=== PATIENT | male | born 1965 | race Caucasian/White ===

== ENCOUNTER 2019-11-22 00:24 | Outpatient (CLI) | payer OTHER, SELFPAY ==
[2019-11-22 18:12] LABS: SARS-CoV-2 RNA PCR Negative
== END 2019-11-22 00:25 | disposition home or self-care (01) ==
LOC: ANHCOVIDDT 00:24
PROVIDERS: PCP Family Medicine; Visit Provider Plastic Surgery
DX: Z20.828 Contact with and (suspected) exposure to other viral communicable diseases (principal); Z01.812 Encounter for preprocedural laboratory examination
CPT/HCPCS: 87635; C9803; U0003

== ENCOUNTER 2019-11-24 02:00 | Day surgery (SDC) | payer OTHER, SELFPAY ==
[2019-08-11 11:22] VITALS: BMI 26.5
[2019-11-14 12:39] VITALS: BMI 27.2
--- NOTE | 2019-11-24 07:40 | HP_ITS ---
DATE OF SERVICE: 11/23/2019 PREOPERATIVE DIAGNOSIS: Chalazion, left upper eyelid. HISTORY: The patient is a 54-year-old male who has a history of chalazion removed from his left upper eyelid in February of 2017. This lesion was somewhat lateral on the upper lid. He comes now in July of 2019 with an apparent chalazion in the midportion of the upper lid. He is asking for removal of this, we estimated at 0.9 cm. He understands the procedure and risk to the eyelid function with this procedure. There are a few options. He has failed conservative treatment with hot soaks. We are planning removal of that under local anesthetic. He has alprazolam 0.5 mg to take prior to his arrival at the hospital. MEDICATIONS: The patient takes no medicine on a regular basis. ALLERGIES: HE HAS NO KNOWN ALLERGIES TO MEDICATION. PAST SURGICAL HISTORY: Prior surgeries include removal of tonsils and adenoids as a teenager. FAMILY HISTORY: Noncontributory. SOCIAL HISTORY: He is a smoker of cigarettes. He lives in [place]. He works for the [employer]. PHYSICAL EXAMINATION: GENERAL: He is a pleasant, adult male in no acute distress. HEENT: Reveals a firm mobile mass in the left upper eyelid that is not directly attached to the skin. It is not particularly inflamed today. The rest of the HEENT exam is unremarkable. CHEST: Clear to auscultation. HEART: Regular rate and rhythm by palpation. ABDOMEN: Soft, nontender. EXTREMITIES: Normal. ASSESSMENT: Chalazion in the left upper eyelid. PLAN: Excision under local anesthetic. D I MT: Starla
--- NOTE | 2019-11-24 07:52 | WPDHPUPDATE1 ---
History and Physical Update Update Date/Time: 11/24/19 07:52 History and Physical has been reviewed, including an updated exam of the patient. There are NO changes in the patient's condition. Risks, benefits, and alternatives have been discussed and questions answered. Patient agrees to proceed with procedure.
[2019-11-24 08:34] VITALS: BP 135/87; PULSE 86; RESP 19; O2SAT 99
[2019-11-24 08:44] VITALS: BP 161/92; PULSE 92; RESP 20; O2SAT 97
[2019-11-24] MEDS: LIDO 1%/EPINEPHRINE 1:100,000 20 ML VIAL INFILTRATE (08:45)
[2019-11-24] MEDS: TETRACAINE HCL 0.5% OPHTH SOLN 4 ML BTL 2 DROP LEFT EYE (08:47)
[2019-11-24 08:55] VITALS: BP 143/97; PULSE 95; RESP 20; O2SAT 95
[2019-11-24] MEDS: BACITRACIN OP OINT 3.5 GM TUBE 1 APPLIC LEFT EYE (08:57)
[2019-11-24 09:04] VITALS: BP 131/86; PULSE 94; RESP 18; O2SAT 95
[2019-11-24] MEDS: BALANCED SALT SOLN OPHTH IRRIG 30 ML BTL EACH EYE (09:10)
[2019-11-24 09:12] VITALS: BP 139/91; PULSE 88; RESP 16; O2SAT 98
--- NOTE | 2019-11-24 09:15 | PM.OP ---
Procedure Note - Brief Procedure Note - Brief Date of procedure: 11/24/19 Pre-op diagnosis: chalazion left upper eyelid Post-op diagnosis: same Procedure performed: Incisioinal drainage of chalazion of the left upper eyelid. Anesthesia: local Surgeon: Jose Beaver MD Estimated blood loss (mL): 0 Pathology: none sent Complications: No immediate complications Condition: stable Disposition: same day
--- NOTE | 2019-11-24 09:23 | PM.PROC ---
Procedure Note - Detailed Date of procedure: 11/24/19 Pre-op diagnosis: chalazion left upper eyelid Post-op diagnosis: same (Chalazion of left upper eyelid) Procedure performed: Incisional drainage of chalazion of left upper eyelid. Description of procedure: The site on the left upper eyelid was marked as the patient waited in the holding area. He was rolled to the operating room and placed supine on the operating table. A time-out was held and confirmed. The Face was prepped with Betadine and eventually draped in the usual fashion. Tetracaine drops were placed in conjunctiva sac 3 times. The skin was infiltrated with 1% lidocaine with epinephrine. The site was marked on the lid for placement of the chalazion clamp. Time was allowed for hemostatic and anesthetic effect. The chalazion clamp was placed and the lid was everted. A small incision was made over the red and swollen area. There was no gross fluid identified. The site was curetted with a small ophthalmic curette.No debris was removed. The site was irrigated. The clamp was removed and ophthalmic antibiotic was placed in the conjunctival sac. He is discharged home with instructions in wound care and follow-up which include the use of the antibiotic ointment given to him. Surgeon: Jose Beaver MD
[2019-11-24 09:30] VITALS: BP 131/97; PULSE 88
--- NOTE | 2019-11-24 09:40 | SUR.PHASEII ---
Patient didn't have an IV at all for procedure.
== END 2019-11-24 09:40 | disposition home or self-care (01) ==
PROVIDERS: PCP Family Medicine; Visit Provider Plastic Surgery
PROC: (CPT 67800; principal; 2019-11-24 08:30)
DX: H00.14 Chalazion left upper eyelid (principal); F17.210 Nicotine dependence, cigarettes, uncomplicated
CPT/HCPCS: 67800; A9270

== ENCOUNTER 2019-12-20 10:46 | Outpatient (CLI) | payer OTHER, SELFPAY ==
--- NOTE | ~2019-12-20 | XR_ITS ---
EXAMINATION: XR chest 2V 12/20/2019 11:02 INDICATION: Shortness of breath PROCEDURE: 2 view chest COMPARISON: No prior studies for comparison. FINDINGS: The lungs are clear. There is emphysematous change with a bleb at the right apex. The cardi omediastinal silhouette is within normal limits. There are no pleural effusions. There is no pneumo thorax suspected. IMPRESSION: 1: NO ACUTE CARDIOPULMONARY DISEASE. Reviewed, dictated and finalized at location B.
== END 2019-12-20 10:47 | disposition home or self-care (01) ==
LOC: ANHIMG 10:49
PROVIDERS: PCP Family Medicine; Visit Provider Family Medicine
DX: R06.02 Shortness of breath (principal)
CPT/HCPCS: 71046

== ENCOUNTER 2020-02-11 01:16 | Outpatient (CLI) | payer OTHER, SELFPAY ==
[2020-02-11 18:13] LABS: SARS-CoV-2 RNA PCR Negative
== END 2020-02-11 01:17 | disposition home or self-care (01) ==
LOC: ANHCOVIDDT 01:16
PROVIDERS: PCP Family Medicine; Visit Provider Internal Medicine Gastroenterology
DX: Z01.812 Encounter for preprocedural laboratory examination (principal); Z20.828 Contact with and (suspected) exposure to other viral communicable diseases
CPT/HCPCS: 87635; C9803; U0003

== ENCOUNTER 2020-04-07 01:16 | Outpatient (CLI) | payer OTHER, SELFPAY ==
[2020-04-07 22:13] LABS: SARS-CoV-2 RNA PCR Negative
== END 2020-04-07 01:17 | disposition home or self-care (01) ==
LOC: ANHCOVIDDT 01:17
PROVIDERS: PCP Family Medicine; Visit Provider Internal Medicine Gastroenterology
DX: Z01.812 Encounter for preprocedural laboratory examination (principal); Z20.828 Contact with and (suspected) exposure to other viral communicable diseases
CPT/HCPCS: 87635; C9803; U0003

== ENCOUNTER 2020-04-10 00:27 | Day surgery (SDC) | payer OTHER, SELFPAY ==
[2020-02-08 12:17] VITALS: BMI 27.6
[2020-04-05 09:27] VITALS: BMI 26.1
[2020-04-10 08:12] VITALS: BP 131/84; PULSE 91; RESP 20; TEMP 36.4; O2SAT 98; BMI 26.8
[2020-04-10] MEDS: LACTATED RINGERS 1,000 ML 150 ML IV CONT (08:23)
--- NOTE | 2020-04-10 08:37 | WPDANESEPPF ---
Anes - Initial Pre Proc Eval Procedure: Operation Date: 04/10/20 09:00 Proposed Procedures p Screening Colonoscopy - Andrzej Alcantar MD Date/Time: 04/10/20 08:37 Surgeon: Andrzej Alcantar MD Pre Op Diagnosis: Neoplasm Screening Patient Data Age: 54 Gender: M Height: 1.8 m Weight: 87.3 kg Last Vital Signs Temp 36.4 C 04/10/20 08:12 Pulse 91 04/10/20 08:12 Resp 20 04/10/20 08:12 BP 131/84 04/10/20 08:12 Pulse Ox 98 04/10/20 08:12 Allergies Allergy/AdvReac Type Severity Reaction Status Date / Time No Known Allergies Allergy Verified 04/10/20 08:10 Home Medications Medication Instructions Recorded Confirmed Type multivitamin 1 tablet PO DAILY 11/14/19 02/08/20 History rivaroxaban 2.5 mg tablet 2.5 mg PO BID #60 tablet 12/20/19 02/08/20 Rx peg 3350-electrolytes 236 240 ml PO Q10M #4000 ml 01/30/20 Rx gram-22.74 gram-6.74 gram-5.86 gram solution rosuvastatin 10 mg tablet 10 mg PO DAILY #90 tablet 02/15/20 04/05/20 Rx umeclidinium 62.5 mcg-vilanterol 1 inh INHALATION DAILY #60 each 02/20/20 04/05/20 Rx 25 mcg/actuation powdr for inhalation varenicline 1 mg tablet 1 mg PO BID 30 Days #60 tablet 03/22/20 04/05/20 Rx Patient hx anesthesia problems: none Family hx anesthesia problems: none PMFSH Past Medical History Medical History (Updated 04/10/20 @ 08:39 by Alek Amato MD) 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 Mixed hyperlipidemia Smoker Tendinitis of right rotator cuff Thrombophlebitis Tobacco dependence Surgical History Surgical History Hx of tonsillectomy Family History Family History Father , 71 yrs old Cerebrovascular accident Heart disease Hypertension Social History Social History (Updated 01/26/20 @ 09:43 by Katey Parkinson Social History: Smoking packs per day: 1 Smoking cigarettes per day: 20.0 Years smoked: 35 Smoking pack-years: 35.00 Smoking status: Current every day smoker Tobacco type: cigarettes Second hand tobacco smoke exposure: Yes Additional smoking assessment comments: CURRENTLY TRYING TO QUIT SMOKING Alcohol intake: current Drinks per week: 0 Alcohol use details: MAY HAVE A FEW DRINKS PER YEAR Substance use: never Substance use type: does not use Living arrangements: with family Gender identity (if verbalized by the patient): Male Spiritual care concerns: No Anes - Eval Final PreProcedure Day of Procedure 04/10/20 08:37 Patient weight: overweight Heart: regular rate and rhythm Lungs: clear to auscultation and normal air movement Airway: Mallampati scale class II Neurological: alert and oriented Last oral intake: >/= 8 hours ASA classification: II Emergent: no Anesthetic plan: proceed Anesthesia type and monitoring: general GIVS Informed Consent: The patient's anesthetic plan and its attendant risks and benefits were discussed with the patient/family/POA. Questions were solicited and answers provided to the satisfaction of the patient/family/POA.
--- NOTE | 2020-04-10 09:15 | PM.HPGS ---
History of Present Illness History of Present Illness Consent: Risks, benefits, and alternatives have been discussed and questions answered. Patient agrees to proceed with procedure. Chief complaint: Neoplasm Screening Narrative: Bear Hernandez is a 54 year old male here for first screening colonoscopy Review of Systems Constitutional: Constitutional: Denies headache(s) and Denies weakness Eyes: Eyes: Denies blurry vision ENT: Reports Normal hearing present, Denies headache(s) and Denies neck pain Cardiovascular: Cardiovascular: Denies chest pain and Denies dyspnea Respiratory: Respiratory: Denies dyspnea Gastrointestinal: Gastrointestinal: Reports no additional gastrointestinal complaints Genitourinary: Genitourinary: Denies dysuria Musculoskeletal: Musculoskeletal: Denies neck pain Integumentary/Breasts: Skin/Breast: Denies dry skin Neurologic: Reports Normal hearing present, Denies headache(s) and Denies weakness Psychiatric: Psychiatric: Denies anxiety Endocrine: Endocrine: Denies change in body appearance Hematologic/Lymphatic: Hematologic/Lymphatic: Denies easy bleeding Allergic/Immunologic: Allergic/Immunologic: Denies urticaria PMF Past Medical History Medical History (Updated 04/10/20 @ 09:16 by Andrzej Alcantar MD) Adhesive capsulitis of right shoulder Colon cancer screening Emphysematous bleb of lung Mixed hyperlipidemia Smoker Tendinitis of right rotator cuff Thrombophlebitis Tobacco dependence Surgical History Surgical History Hx of tonsillectomy Family History Family History Father , 71 yrs old Cerebrovascular accident Heart disease Hypertension Social History Social History (Updated 01/26/20 @ 09:43 by Katey Sandoval) Social History: Smoking packs per day: 1 Smoking cigarettes per day: 20.0 Years smoked: 35 Smoking pack-years: 35.00 Smoking status: Current every day smoker Tobacco type: cigarettes Second hand tobacco smoke exposure: Yes Additional smoking assessment comments: CURRENTLY TRYING TO QUIT SMOKING Alcohol intake: current Drinks per week: 0 Alcohol use details: MAY HAVE A FEW DRINKS PER YEAR Substance use: never Substance use type: does not use Living arrangements: with family Gender identity (if verbalized by the patient): Male Spiritual care concerns: No Meds Home Medications and Allergies Home Medications Medication Instructions Recorded Confirmed Type multivitamin 1 tablet PO DAILY 11/14/19 02/08/20 History rivaroxaban 2.5 mg tablet 2.5 mg PO BID #60 tablet 12/20/19 02/08/20 Rx peg 3350-electrolytes 236 240 ml PO Q10M #4000 ml 01/30/20 Rx gram-22.74 gram-6.74 gram-5.86 gram solution rosuvastatin 10 mg tablet 10 mg PO DAILY #90 tablet 02/15/20 04/05/20 Rx umeclidinium 62.5 mcg-vilanterol 1 inh INHALATION DAILY #60 each 02/20/20 04/05/20 Rx 25 mcg/actuation powdr for inhalation varenicline 1 mg tablet 1 mg PO BID 30 Days #60 tablet 03/22/20 04/05/20 Rx Allergies Allergy/AdvReac Type Severity Reaction Status Date / Time No Known Allergies Allergy Verified 04/10/20 08:10 Vital Signs Vital Signs - 24 hr 04/10/20 08:12 Temperature 97.6 F Pulse Rate 91 Respiratory Rate 20 Blood Pressure 131/84 Pulse Oximetry 98 Exam Const: General: comfortable and no acute distress HENMT: General nose exam: Normal nares present Eyes: General: appearance normal, both eyes and all related structures Neck: Neck: no JVD Resp: Auscultation: clear to auscultation bilaterally Cardio: Rate: regular rate Rhythm: regular rhythm GI: Inspection: non-distended GI Palp: Yes Soft to palpation Skin: General skin exam: normal color Neuro: General: gait normal Speech: normal speech Extrem: General: normal to inspection Psych: Mental Status: m
[2020-04-10 09:53] VITALS: BP 122/81; PULSE 64; RESP 16; O2SAT 99
[2020-04-10 10:03] VITALS: BP 135/72; PULSE 68; RESP 18; O2SAT 100
[2020-04-10 10:13] VITALS: BP 139/82; PULSE 66; RESP 16; O2SAT 99
== END 2020-04-10 10:34 | disposition home or self-care (01) ==
PROVIDERS: PCP Family Medicine; Visit Provider Internal Medicine Gastroenterology
PROC: 0DJD8ZZ Inspection of Lower Intestinal Tract, Via Natural or Artificial Opening Endoscopic (ICD-10-PCS; CPT 45378; principal; 2020-04-10 09:00)
DX: Z12.11 Encounter for screening for malignant neoplasm of colon (principal); D12.2 Benign neoplasm of ascending colon; K64.8 Other hemorrhoids; E78.2 Mixed hyperlipidemia; J43.9 Emphysema, unspecified; Z79.01 Long term (current) use of anticoagulants; F17.210 Nicotine dependence, cigarettes, uncomplicated
CPT/HCPCS: 45385; 88305; J2001; J2704; J7120

== ENCOUNTER 2021-03-26 13:10 | Outpatient (CLI) | payer OTHER, SELFPAY ==
--- NOTE | ~2021-03-26 | XR_ITS ---
EXAMINATION: XR chest 2V 03/26/2021 13:33 INDICATION: Cough. COPD. PROCEDURE: 2 view chest COMPARISON: 12/20/2019 FINDINGS: The lungs are clear. The cardiomediastinal silhouette is within normal limits. There are no pleural effusions. There is no pneumothorax suspected. There is apical pleural thickening/scarri ng. IMPRESSION: 1: NO ACUTE CARDIOPULMONARY DISEASE. Reviewed, dictated and finalized at location B.
== END 2021-03-26 13:11 | disposition home or self-care (01) ==
LOC: ANHIMG 13:16
PROVIDERS: PCP Family Medicine; Visit Provider Family Medicine
DX: R05.9 Cough, unspecified (principal)
CPT/HCPCS: 71046

== ENCOUNTER → 2021-04-08 10:15 | Outpatient (CLI) | payer OTHER, SELFPAY ==
--- NOTE | ~2021-04-08 | CT_ITS ---
EXAMINATION: CT lung screening EXAM DATE: 04/08/2021 10:28 INDICATION: Nicotine Dependence , personal history tobacco dependence. TECHNIQUE: Spiral low dose CT of the chest without contrast. Axial, coronal and sagittal images were reviewed. The dose-length product (DLP) for this examination was 110.24 mGy-cm. The exposure was t ailored according to patient size (auto mA exposure control), and iterative reconstruction (ASIR) was used as additional dose reduction technique. There is no prior study for comparison. FINDINGS: There is moderate right apical, mild more diffuse emphysema. No suspicious pulmonary nodul es. Tracheobronchial tree is patent. There is no mediastinal, hilar or axillary lymphadenopathy. There are no pleural or pericardial effusions. There is no pneumothorax. Heart normal in size. No evidence of coronary arterial calcification. Upper abdomen is unremarkable. There is thoracic spondylosis without osteoblastic or osteolytic lesions identified. IMPRESSION: Lung-RADS category 1, negative (<1%chance of malignancy); recommend continued LDCT screen ing in 1 year. Reviewed, dictated and finalized at location A. IMPRESSION: Lung-RADS category 1, negative (<1%chance of malignancy); recommend continued LDCT screening in 1 year.
== END ==
PROVIDERS: PCP Family Medicine; Visit Provider Family Medicine
DX: F17.210 Nicotine dependence, cigarettes, uncomplicated (principal)
CPT/HCPCS: 71271

== ENCOUNTER 2021-08-30 07:56 | Outpatient (CLI) | payer OTHER, SELFPAY ==
--- NOTE | 2021-08-30 14:32 | WPDPFTINT ---
PFT Procedure Performed PFT Procedure Performed Spirometry with Pre/Post Bronchodilator Plethysmography (Lung Vol) Diffusing Cap (DLCO) Flow Vol Loop PFT Interpretation This is a pulmonary function test with pre and post-bronchodilator spirometry, plethysmography and diffusing capacity. The test was performed and results interpreted in accordance with the 2019 and 2005 ATS/ERS Task Force guidelines respectively using the Global Lung Function Initiative-2012 reference equations. Patient demonstrated good effort and cooperation. Reproducibility criteria were met. The quality of the pre bronchodilator spirometry maneuver was Grade A and post bronchodilator spirometry maneuver was Grade A. Findings: Spirometry: there is decreased maximal expiratory airflow at all lung volumes with a concaved expiratory flow tracing. The contour the inspiratory flow tracing is normal. The pre bronchodilator FVC is 3.27 L, 67% predicted. The pre bronchodilator FEV1 is 1.20 L, 32% predicted. The pre bronchodilator FEV1: FVC ratio is 37%. The post bronchodilator FVC is 4.01 L, representing a 23% increase. The post bronchodilator FEV1 is 1.71 L, representing a 42% increase. The post bronchodilator FEV1: FVC ratio is 43%. Plethysmography: The total lung capacity is 10.39 L, 149% predicted. The functional residual capacity is 8.00 L, 222% predicted. The residual volume is 6.92 L, 326% predicted. Diffusing capacity: The diffusion capacity unadjusted for hemoglobin and carboxyhemoglobin is 17.2, 58% predicted. The diffusing capacity adjusted for alveolar volume is 3.03 L, 68% predicted. In comparison to previous pulmonary function test performed on 02/20/2017 in which only spirometry without a bronchodilator was performed the FVC has decreased from 4.07 L to 3.27 L. The FEV1 has decreased from 2.42 L to 1.20 L. The total lung capacity is unchanged from 9.24 L to 10.39 L. The functional residual capacity has increased from 5.19 L to 8.00 L. The residual volume has increased from 4.64 L to 6.92 L. The diffusing capacity unadjusted for hemoglobin and carboxyhemoglobin has decreased from 22.5 to 17.2. The diffusing capacity adjusted for alveolar volume is unchanged from 3.04 to 3.03. Impression: There is a very severe obstructive abnormality with significant improvement after inhaling a single dose of albuterol. The increase in residual volume is consistent with air trapping from an obstructive abnormality. Hyperinflation is present is demonstrated by the increase in functional residual capacity and total lung capacity and is consistent with an obstructive abnormality. The diffusing capacity unadjusted for hemoglobin and carboxyhemoglobin is moderately decreased and remains mildly decreased when adjusted for alveolar volume. In comparison to the previous pulmonary function test on 02/20/2017 there has been a greater than anticipated time-dependent decrease in FVC, FEV1 and diffusing capacity unadjusted for hemoglobin and carboxyhemoglobin with a greater than anticipated time-dependent increase in functional residual capacity and residual volume with no change in the total lung capacity and diffusing capacity adjusted for alveolar volume. Clinical correlation is recommended.
== END 2021-08-30 07:57 | disposition home or self-care (01) ==
LOC: ANHPFT 07:58
PROVIDERS: PCP Family Medicine; Visit Provider Internal Medicine Pulmonary Disease
DX: R06.02 Shortness of breath (principal); R94.2 Abnormal results of pulmonary function studies
CPT/HCPCS: 94060; 94726; 94729

== ENCOUNTER 2022-07-15 10:33 | Outpatient (CLI) | payer OTHER, SELFPAY ==
--- NOTE | ~2022-07-15 | CT_ITS ---
CT Scan of the Chest without Contrast: Clinical Indication: Personal history of nicotine dependence, lung cancer screening Technique: Contiguous sections were acquired throughout the chest without intravenous contrast. Dose reduction technique was used on this scan by utilizing automated exposure control and iterative recon struction technique. The dose-length product (DLP) was 90.72 mGy-cm. COMPARISON: 04/08/2021 Findings: There is no evidence of any significant mediastinal, hilar or axillary lymphadenopathy. The mediastin al soft tissues appear normal. There is no evidence of pleural or pericardial effusion. Right apical bullous changes stable from prior exam. Minimal paraseptal emphysema in the left lung ap ex noted. Probable tiny areas of mild cystic bronchiectasis noted in the left upper lobe. These findi ngs are all stable from prior exam. No discrete pulmonary nodule identified. Images through the upper abdomen reveal no abnormalities. Impression: Lung-RADS 1: Negative. Twelve-month follow-up screening CT recommended. Stable emphysematous/bronchiectatic changes, as noted above. Reviewed, dictated and finalized at location . [employer] Impression: Lung-RADS 1: Negative. Twelve-month follow-up screening CT recommended. Stable emphysematous/bronchiectatic changes, as noted above.
== END 2022-07-15 10:34 | disposition home or self-care (01) ==
PROVIDERS: PCP Family Medicine; Visit Provider Internal Medicine Pulmonary Disease
DX: Z12.2 Encounter for screening for malignant neoplasm of respiratory organs (principal); Z87.891 Personal history of nicotine dependence
CPT/HCPCS: 71271

== ENCOUNTER 2023-06-25 04:02 | Day surgery (SDC) | payer OTHER, SELFPAY ==
[2023-05-28 12:29] VITALS: BMI 25.1
--- NOTE | 2023-06-23 09:29 | SUR.PREOP ---
Patient called regarding upcoming procedure. Message left on pt's phone regarding appointment times.
[2023-06-25 08:55] VITALS: BP 131/92; PULSE 94; RESP 16; TEMP 36; O2SAT 100
[2023-06-25] MEDS: LACTATED RINGERS 1,000 ML 150 ML IV CONT (09:03)
--- NOTE | 2023-06-25 09:16 | WPDANESEPPF ---
Anes - Initial Pre Proc Eval Procedure: Operation Date: 06/25/23 10:00 Proposed Procedures p Colonoscopy - Andrzej Alcantar MD Date/Time: 06/25/23 09:16 Surgeon: Andrzej Alcantar MD Pre Op Diagnosis: hx of colonic polyps Patient Data Age: 58 Gender: M Height: 1.78 m Weight: 74.2 kg Last Vital Signs Temp 96.8 F L 06/25/23 08:55 Pulse 94 06/25/23 08:55 Resp 16 06/25/23 08:55 BP 131/92 H 06/25/23 08:55 Pulse Ox 100 06/25/23 08:55 O2 Del Method Room Air 06/25/23 08:55 Allergies Allergy/AdvReac Type Severity Reaction Status Date / Time No Known Allergies Allergy Verified 06/25/23 08:53 Home Medications Medication Instructions Recorded Confirmed Type multivitamin 1 tablet PO DAILY 11/14/19 06/25/23 History metoprolol tartrate 25 mg tablet See Rx Instructions .Route 02/22/23 06/25/23 Rx .COMPLEX #180 tabs rosuvastatin 5 mg tablet 5 mg PO DAILY #90 tabs 05/13/23 06/25/23 Rx Patient hx anesthesia problems: none Family hx anesthesia problems: none Results Review: All pre-operative results and documents have been reviewed as part of the pre-operative evaluation. [facility] Past Medical History Medical History Adhesive capsulitis of right shoulder Colon cancer screening Emphysematous bleb of lung Essential hypertension Mixed hyperlipidemia Smoker Tendinitis of right rotator cuff Thrombophlebitis Tobacco dependence Surgical History Surgical History Hx of tonsillectomy Family History Family History Father , 71 yrs old Cerebrovascular accident Heart disease Hypertension Social History Social History Social History: Smoking packs per day: 1 Smoking cigarettes per day: 20.0 Years smoked: 35 Smoking pack-years: 35.00 Smoking status: Current every day smoker Tobacco type: cigarettes Second hand tobacco smoke exposure: Yes Additional smoking assessment comments: CURRENTLY TRYING TO QUIT SMOKING Alcohol intake: current Alcohol use details: Occasionally Substance use: never Substance use type: does not use Living arrangements: with family Occupation/Education: occupation Gender identity (if verbalized by the patient): Male Sexual Orientation (if Verbalized by the Patient): Straight or Heterosexual Spiritual care concerns: No Anes - Eval Final PreProcedure Day of Procedure 06/25/23 09:16 Patient weight: normal Heart: regular rate and rhythm Lungs: clear to auscultation Airway: Mallampati scale class II Neurological: alert and oriented Last oral intake: >/= 8 hours ASA classification: III Emergent: no Anesthetic plan: proceed Anesthesia type and monitoring: general GIVS and standard monitoring Results Review: All pre-operative results and documents have been reviewed as part of the pre-operative evaluation. Informed Consent: The patient's anesthetic plan and its attendant risks and benefits were discussed with the patient/family/POA. Questions were solicited and answers provided to the satisfaction of the patient/family/POA.
--- NOTE | 2023-06-25 09:29 | PM.HPGS ---
History of Present Illness History of Present Illness Consent: Risks, benefits, and alternatives have been discussed and questions answered. Patient agrees to proceed with procedure. Chief complaint: hx of colonic polyps Narrative: Bear Hernandez is a 58 year old male with colon polyp in 2019 Review of Systems Constitutional: Constitutional: Denies headache(s) and Denies weakness Eyes: Eyes: Denies blurry vision ENT: Reports Normal hearing present, Denies headache(s) and Denies neck pain Cardiovascular: Cardiovascular: Denies chest pain and Denies dyspnea Respiratory: Respiratory: Denies dyspnea Gastrointestinal: Gastrointestinal: Reports no additional gastrointestinal complaints Genitourinary: Genitourinary: Denies dysuria Musculoskeletal: Musculoskeletal: Denies neck pain Integumentary/Breasts: Skin/Breast: Denies dry skin Neurologic: Reports Normal hearing present, Denies headache(s) and Denies weakness Psychiatric: Psychiatric: Denies anxiety Endocrine: Endocrine: Denies change in body appearance Hematologic/Lymphatic: Hematologic/Lymphatic: Denies easy bleeding Allergic/Immunologic: Allergic/Immunologic: Denies urticaria PMFSH Past Medical History Medical History (Updated 06/25/23 @ 09:29 by Andrzej Alcantar MD) Adhesive capsulitis of right shoulder Colon cancer screening Colon polyp Emphysematous bleb of lung Essential hypertension Mixed hyperlipidemia Smoker Tendinitis of right rotator cuff Thrombophlebitis Tobacco dependence Surgical History Surgical History Hx of tonsillectomy Family History Family History Father , 71 yrs old Cerebrovascular accident Heart disease Hypertension Social History Social History Social History: Smoking packs per day: 1 Smoking cigarettes per day: 20.0 Years smoked: 35 Smoking pack-years: 35.00 Smoking status: Current every day smoker Tobacco type: cigarettes Second hand tobacco smoke exposure: Yes Additional smoking assessment comments: CURRENTLY TRYING TO QUIT SMOKING Alcohol intake: current Alcohol use details: Occasionally Substance use: never Substance use type: does not use Living arrangements: with family Occupation/Education: occupation Gender identity (if verbalized by the patient): Male Sexual Orientation (if Verbalized by the Patient): Straight or Heterosexual Spiritual care concerns: No Meds Home Medications and Allergies Home Medications Medication Instructions Recorded Confirmed Type multivitamin 1 tablet PO DAILY 11/14/19 06/25/23 History metoprolol tartrate 25 mg tablet See Rx Instructions .Route 02/22/23 06/25/23 Rx .COMPLEX #180 tabs rosuvastatin 5 mg tablet 5 mg PO DAILY #90 tabs 05/13/23 06/25/23 Rx Allergies Allergy/AdvReac Type Severity Reaction Status Date / Time No Known Allergies Allergy Verified 06/25/23 08:53 Vital Signs Vital Signs - 24 hr 06/25/23 08:55 Temperature 96.8 F L Pulse Rate 94 Respiratory Rate 16 Blood Pressure 131/92 H Pulse Oximetry 100 Oxygen Delivery Room Air Exam Const: General: comfortable and no acute distress HENMT: Face/Nose/Sinus: Normal nares present Eyes: General: appearance normal, both eyes and all related structures Neck: Neck: no JVD Resp: Auscultation: clear to auscultation bilaterally Cardio: Rate: regular rate Rhythm: regular rhythm GI: Inspection: non-distended GI Palp: Yes Soft to palpation Skin: General skin exam: normal color Neuro: General: gait normal Speech: normal speech Extrem: General: normal to inspection Psych: Mental Status: mental status grossly normal Assessment and Plan Assessment and plan (1) Colon polyp: Code(s): K63.5 - Polyp of colon Status: Acute
[2023-06-25 09:46] VITALS: BP 109/82; PULSE 80; RESP 20; O2SAT 100
[2023-06-25 09:56] VITALS: BP 117/80; PULSE 83; RESP 21; O2SAT 100
[2023-06-25 10:06] VITALS: BP 123/81; PULSE 75; RESP 16; O2SAT 100
== END 2023-06-25 10:18 | disposition home or self-care (01) ==
PROVIDERS: PCP Family Medicine; Visit Provider Internal Medicine Gastroenterology
PROC: 0DJD8ZZ Inspection of Lower Intestinal Tract, Via Natural or Artificial Opening Endoscopic (ICD-10-PCS; CPT 45378; principal; 2023-06-25 10:00)
DX: Z12.11 Encounter for screening for malignant neoplasm of colon (principal); D12.2 Benign neoplasm of ascending colon; K64.8 Other hemorrhoids; J43.9 Emphysema, unspecified; I10 Essential (primary) hypertension; E78.2 Mixed hyperlipidemia; Z98.890 Other specified postprocedural states; F17.210 Nicotine dependence, cigarettes, uncomplicated; Z82.49 Family history of ischemic heart disease and other diseases of the circulatory system
CPT/HCPCS: 45385; 88305; J2704; J7120

== ENCOUNTER 2024-06-03 15:14 | Outpatient (CLI) | payer OTHER, SELFPAY ==
--- NOTE | ~2024-06-03 | CT_ITS ---
EXAMINATION: CT lung screening DATE: 06/03/2024 15:32 INDICATION: Z87.891 - Personal history of nicotine dependence TECHNIQUE: Computed tomography (CT) of the chest was performed without intravenous contrast. Addition al 3D reconstructions utilizing coronal maximum intensity projection (MIP) were performed. Automated exposure control and iterative reconstruction technique were employed. The dose-length product was 11 3.41 mGy-cm. COMPARISON: 07/15/2022 FINDINGS: Mild emphysema with prominent bullous change at the right apex. Small thin branching opacity at the r ight upper lobe consistent with mucous impacted peripheral bronchi. No other suspicious pulmonary nod ules, pneumonia, pulmonary edema or pleural effusion. Heart size is normal. No pericardial effusion. Thoracic aorta is normal in caliber. No pathologically enlarged thoracic lymphadenopathy. 1.2 cm exop hytic cyst at the upper pole of the left kidney. Mild thoracic spondylosis. IMPRESSION: 1. Lung-RADS category 1: Negative. Continue annual screening with noncontrast low-dose chest CT in 12 months. Reviewed, dictated and finalized at location A. NISTRATIVE NURSING SUPERVISOR IMPRESSION: 1. Lung-RADS category 1: Negative. Continue annual screening with noncontrast l ow-dose chest CT in 12 months.
== END 2024-06-03 15:15 | disposition home or self-care (01) ==
PROVIDERS: PCP Family Medicine; Visit Provider Physician Assistant
DX: Z12.2 Encounter for screening for malignant neoplasm of respiratory organs (principal); Z87.891 Personal history of nicotine dependence
CPT/HCPCS: 71271

== ENCOUNTER 2025-06-05 10:41 | Outpatient (CLI) | payer OTHER, SELFPAY ==
--- NOTE | ~2025-06-05 | CT_ITS ---
EXAMINATION:CT lung screening DATE: 06/05/2025 11:30 INDICATION: Personal history of nicotine dependence. TECHNIQUE: Computed tomography (CT) of the chest was performed without intravenous contrast. Automated exposure control and iterative reconstruction technique were employed. The dose-length product (DLP) was 116.59 mGy-cm. COMPARISON: Chest CT 06/03/2024 FINDINGS: There is moderate emphysema. There is a 3 mm nodule in right upper lobe. There is a 2 mm nodule in left upper lobe. There is mild scarring at left lung apex without change. No pleural effusion. The heart size is normal. No pericardial effusion. There is mild thoracic spondylosis. IMPRESSION: 1. Lung-RADS category 2: Benign appearance or behavior. Continue annual screening with noncontrast low-dose chest CT in 12 months. Reviewed, dictated and finalized at location E. E SEARCH MANAGER IMPRESSION: 1. Lung-RADS category 2: Benign appearance or behavior. Continue annual screeni ng with noncontrast low-dose chest CT in 12 months.
--- OUTSIDE RECORDS SUMMARY | 2025-06-05 11:14 | XMS_ITS | Clinical Summary ---
Author Organization [facility] [place] [address] Address [address] [place] [address] Care Team Providers Care Manager Of Software Development Name Role Phone Sepideh Farooq MD Primary Care Provider Allergies No known active allergies Medications azelastine (ASTELIN) 137 mcg (0.1 %) nasal spray Administer 1 spray into each nostril 2 (two) times a day Use in each nostril as directed Active fluticasone propionate (FLONASE) 50 mcg/actuation nasal spray Administer 2 sprays into each nostril daily 1 Active metoprolol tartrate (LOPRESSOR) 25 mg immediate release tablet Take 25 mg by mouth 2 (two) times a day 1 Active losartan (COZAAR) 25 mg tablet Take 1 tablet (25 mg total) by mouth daily 90 tablet 3 1 Active Active Problems Problem Noted Date Diagnosed Date Essential hypertension 05/29/2021 Abnormal stress test 05/29/2021 Tobacco abuse counseling 05/29/2021 Surgical History Surgery Date Site/Laterality Comments TONSILLECTOMY/ADENOIDECTOMY COLONOSCOPY Medical History Medical History Date Comments Hypertension Hyperlipidemia Abnormal stress test Lung disease Family History Medical History Relation Name Comments Hypertension Father Stroke Father No Known Problems Mother Relation Name Status Comments Father Mother Alive Social History Tobacco Use Types Packs/Day Years Used Date Smoking Tobacco: Every Day Cigarettes Smokeless Tobacco: Never Tobacco Cessation:Ready to Q uit: Yes; Counseling Given: Yes AUDIT-C Answer Date Recorded Q1: How often do you have a drink containing alc ohol? Monthly or less 06/04/2021 Q2: How many drinks containi ng alcohol do you have on a typical day when you are drinking? 1 or 2 06/04/2021 Q3: How often do you have si x or more drinks on one occasion? 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 Gender Identity Not on file Sexual Orientation Not on file Last Filed Vital Signs Vital Sign Reading Time Taken Comments Blood Pressure 138/88 05/29/2021 3:10 PM WORK CAR OPERATOR Pulse - - Temperature - - Respiratory Rate 16 05/29/2021 3:10 PM WORK CAR OPERATOR Oxygen Saturation - - Inhaled Oxygen Concentration - - Weight 86.5 kg (190 lb 9.6 oz) 05/29/2021 3:10 P M WORK CAR OPERATOR Height 177.8 cm (5' 10) 05/29/2021 3:10 PM WORK CAR OPERATOR Body Mass Index 27.35 05/29/2021 3:10 PM WORK CAR OPERATOR Plan of Treatment Not on file Insurance [facility] Care Teams Manager Of Software Development Relationship Specialty Start Date End Date Sepideh Farooq MD [address] [place] [address] PCP - General Family Medicine 03/29/21
== END 2025-06-05 10:42 | disposition home or self-care (01) ==
PROVIDERS: PCP Family Medicine; Visit Provider Physician Assistant
DX: Z12.2 Encounter for screening for malignant neoplasm of respiratory organs (principal); Z87.891 Personal history of nicotine dependence
CPT/HCPCS: 71271